=== PATIENT | male | born 1975 | race Caucasian/White ===

== ENCOUNTER 2017-12-15 00:13 | Emergency (ER) | payer BC ==
[~2017-12-15] VITALS: Ht 172.7 cm; Wt 95.3 kg
[2017-12-15 00:28] VITALS: BP 183/98
[2017-12-15] MEDS ORDERED: NAPR-514 PO (01:05)
[2017-12-15] MEDS ORDERED: PENI500T PO (01:05)
[2017-12-15] MEDS ORDERED: CHLO15MO2 PO (01:05)
--- NOTE | 2017-12-15 01:06 | PHYS DOC ---
Past Medical History Past Medical History: No Pertinent History Past Surgical History: No Surgical History Alcohol Use: None Drug Use: None Adult General Chief Complaint Chief Complaint: DENTAL PROBLEM HPI HPI Patient is a 42 year old male who presents to the ER with complaints of diffuse dental decay and right lower dental pain. He states the pain started 3 days ago but increased tonight. He denies any fever, cough, sore throat, nausea , or vomiting. Review of Systems Review of Systems Constitutional: Denies fever or chills [] Eyes: Denies change in visual acuity, redness, or eye pain [] HENT: Denies nasal congestion or sore throat, reports dental pain RLQ [] Respiratory: Denies cough or shortness of breath [] Integument: Denies rash or skin lesions [] Neurologic: Denies headache, focal weakness or sensory changes [] All other systems were reviewed and found to be within normal limits, except as documented in this note. Allergies Allergies Allergies Coded Allergies Type Severity Reaction Last Updated Verified No Known Drug Allergies 08/21/13 No Physical Exam Physical Exam Constitutional: Well developed, well nourished, no acute distress, non-toxic appearance. [] HENT: Normocephalic, atraumatic, bilateral external ears normal, oropharynx moist, no oral exudates, nose normal; diffuse dental decay with gingival edema [ ] Eyes: PERRLA, conjunctiva normal, no discharge. [] Neck: Normal range of motion, no tenderness, supple, no stridor. [] Lungs & Thorax: Respirations even and unlabored Skin: Warm, dry, no erythema, no rash. [] Neurologic: Alert and oriented X 3, normal motor function, normal sensory function, no focal deficits noted. [] Psychologic: Affect normal, judgement normal, mood normal. [] Current Patient Data Vital Signs Vital Signs Date Time Temp Pulse Resp B/P (MAP) Pulse Ox O2 Delivery O2 Flow Rate FiO2 12/15/17 00:28 97.9 73 18 183/98 (126) 99 Room Air 97.9 EKG EKG [] Radiology/Procedures Radiology/Procedures [] Course & Med Decision Making Course & Med Decision Making Pertinent Labs and Imaging studies reviewed. (See chart for details) Dx: Dental pain with caries and gingivitis Prescriptions for Pen VK, naproxen, and peridex written. Dental referral list provided. Patient verbalized an understanding of home care, medications, follow- up, and return to ED instructions and was in agreement with the plan of care. [] Dragon Disclaimer Dragon Disclaimer This electronic medical record was generated, in whole or in part, using a voice recognition dictation system. Departure Departure Impression: Primary Impression: Pain due to dental caries Additional Impression: Gingivitis Disposition: HOME, SELF-CARE Condition: STABLE Referrals: NO PCP (PCP) Patient Instructions: Dental Caries, Dental Pain, [id number] Additional Instructions: Fill prescriptions and use as directed. Follow up with a dentist using the referral list provided. Return to the ER if symptoms worsen. Scripts Naproxen (NAPROXEN) 500 Mg Tablet 500 MG PO BID PRN for p for 10 Days, #20 TAB 0 Refills Prov: KIRAN TEJEDA APRN 12/15/17 Chlorhexidine Gluconate (PERIDEX) 15 Ml Mouthwash 15 ML PO BID, #946 ML 0 Refills Prov: KIRAN TEJEDA APRN 12/15/17 Penicillin V Potassium (PENICILLIN V POTASSIUM) 500 Mg Tablet 1 TAB PO QID, #40 TAB Prov: KIRAN TEJEDA APRN 12/15/17 Attending Signature Attending Signature I have reviewed the PA/[employer]AC[employer]'s note and plan of care. I was available for consultation as needed during the patient's visit in the emergency department. I agree with the clinical impression, plan, and disposition. Problem Qualifiers KIRAN TEJEDA APRN Dec 15, 2017 01:05 TELLY ESPITIA DO Dec 19, 2017 06:33
== END 2017-12-15 01:10 | disposition home or self-care (01) ==
LOC: ER 00:13
DX: K02.9 Dental caries, unspecified (principal); K05.10 Chronic gingivitis, plaque induced
CPT/HCPCS: 99283